=== PATIENT | female | born 1995 | race Caucasian/White ===

== ENCOUNTER 2018-01-22 16:56 | Emergency (ER) | payer OTHER ==
[2018-01-22] MEDS ORDERED: NS 1,000 ML IV ONE (17:17)
[2018-01-22 17:33] LABS: PLATELET COUNT 178 10^3/uL (150-400)
[2018-01-22] MEDS ORDERED: KETOROLAC 15 MG/1 ML SDV IVP ONE (18:26)
--- NOTE | 2018-01-22 19:28 | EDPHY ---
H & P Stated Complaint: HEMATURIA, L FLANK RADIATING L ABD PAIN/X 2 DAYS HX UTI Time Seen by Provider: 01/22/18 17:15 HPI/ROS: Chief complaint: Left flank pain, blood in urine History of present illness: This is a 22-year-old female who presents to the emergency department reporting over the last 2 days he has developed flank pain. Pain radiates towards the abdomen. Initially worsened but is now improving. She described the pain as mild to moderate. However over the last day she started nose blood in urine at which time she presents to the emergency room. She denies precipitating factors. She denies alleviating or aggravating factors. She denies other associated signs or symptoms including no fevers, no nausea, vomiting, diarrhea, no abnormal vaginal discharge or bleeding. Review of systems: A 10 point review of systems was obtained and other than described above was negative - Personal History LMP (Females 10-55): Over 28 Days Ago Current Tetanus Diphtheria and Acellular Pertussis (TDAP): Yes - Medical/Surgical History Hx Asthma: No Hx Chronic Respiratory Disease: No Hx Diabetes: No Hx Cardiac Disease: No Hx Renal Disease: No Hx Cirrhosis: No Hx Alcoholism: No Hx HIV/AIDS: No Hx Splenectomy or Spleen Trauma: No Other PMH: FREQ UTI, BROKEN BONE BELOW R EYE METAL PLATE, INJURED KIDNEY FALLING OFF HORSE AT 13, RHINOPLASTY - Social History Smoking Status: Never smoked - Physical Exam Exam: General Appearance: Alert, nontoxic. Eyes: Pupils equal and round no pallor or injection. ENT, Mouth: Mucous membranes moist. Respiratory: There are no retractions, lungs are clear to auscultation. Cardiovascular: Regular rate and rhythm. Gastrointestinal: Abdomen is soft and non tender, no masses, bowel sounds normal. Genitourinary: No CVA tenderness. Neurological: Alert and oriented x4. Strength and sensation intact and symmetrical. Skin: Warm and dry, no rashes. Musculoskeletal: Neck is supple non tender. Extremities are symmetrical, full range of motion. Psychiatric: Patient is oriented X 3, there is no agitation. Constitutional: Initial Vital Signs Temperature (C) 36.9 C 01/22/18 17:03 Heart Rate 71 01/22/18 17:03 Respiratory Rate 16 01/22/18 17:03 Blood Pressure 121/91 H 01/22/18 17:03 O2 Sat (%) 99 01/22/18 17:03 O2 Delivery Mode Room Air Allergies/Adverse Reactions: Penicillins Allergy (Verified 01/22/18 17:02) Home Medications: Medication Instructions Recorded NK [No Known Home Meds] 01/22/18 Medical Decision Making - Diagnostics Imaging: Discussed imaging studies w/ medical technician Radiologist ED Course/Re-evaluation: Patient seen under the supervision of my secondary supervising physician Dr. Romina Sidhu. Patient presents with left flank pain radiating towards the abdomen and now hematuria. She is nontoxic. Vital signs are stable. Blood studies unremarkable. Hematuria noted on urinalysis. However CT scan abdomen pelvis is negative. I have discussed with the patient it is not clear as to the cause of her problem although it is likely she had a stone and passed it. She has not required pain management. She is nontoxic. She will be discharged home. She is asked to follow up with her primary care doctor for continued evaluation and care. Home care is discussed. She is given strict return precautions. Differential Diagnosis: Included but not limited to kidney stone, pyelonephritis, gastritis, gastroenteritis, colitis, diverticulitis, an associated complications - Data Points Laboratory Results: Laboratory Results 01/22/18 17:23 01/22/18 17:23 Microbiology Results: MICROBIOLOGY 01/22/18 17:23 Urine,Clean Catch Urine Culture - Preliminary Medications Given: Discontinued Medications Sodium Chloride (Ns) 1,000 mls @ 0 mls/hr IV EDNOW ONE; Wide Open PRN Reason: Protocol Stop: 01/22/18 17:18 Last Admin: 01/22/18 17:54 Dose: 1,000 mls Ketorolac Tromethamine (Toradol) 15 mg IVP EDNOW ONE Stop: 01/22/18 18:27 Last Admin: 01/22/18 19:12 Dose: 15 mg Departure - Departure Disposition: Home, Routine, Self-Care Clinical Impression: Flank pain Hematuria Qualifiers: Hematuria type: unspecified type Qualified Code(s): R31.9 - Hematuria, unspecified Condition: Good Instructions: Hematuria (ED), Flank Pain (ED) Additional Instructions: Follow-up with the primary care doctor on Thursday for recheck If symptoms worsen or new symptoms develop return to the emergency room for recheck Referrals: NONE *PRIMARY CARE P,. [Primary Care Provider] - As per Instructions [facility],. [Clinic] - As per Instructions
[2018-01-22 19:39] VITALS: BP 138/93
== END 2018-01-22 19:43 | disposition home or self-care (01) ==
DX: R31.9 Hematuria, unspecified (principal); E86.9 Volume depletion, unspecified
CPT/HCPCS: 96374; J1885